=== PATIENT | female | born 1960 | race Caucasian/White ===

== ENCOUNTER → 2016-09-17 | Outpatient (CLI) | payer OTHER ==
[~2016-09-17] MED LIST: ACHYD1T PO; CALC-781 PO; CHOL100055 PO; COLC0.6T53 PO; CYCL100C3 PO; FLUO15CR8 TP; HYDR1TAB71 PO; METO25TA2 PO; METOPROLOL; METR500T PO; MULT-963 PO; ONDN4T PO; TRIA60LO6 TOP; ZLP10T PO; [UNRECOGNIZED DRUG - CODE] TP
--- OUTSIDE RECORDS SUMMARY | 2016-09-17 09:41 | XMS REPORT | Continuity of Care Document ---
Author Author [facility] Organization [facility] Address Unknown Phone Unavailable Care Team Providers Care Wax Pourer Name Role Phone Self, Referral PCP Unavailable Source Comments Some departments are not documenting in the electronic medical record. If you do not see the information that you expected, contact Release of Information in the Health Information Management department at [phone] for further assistance in locating additional records.[facility] Active Allergies and Adverse Reactions Not on File Current Medications Not on file Active Problems Problem Noted Date History of breast cancer 07/11/2013 Overview: 2007 Social History Tobacco Use Types Packs/Day Years Used Date Never Assessed Plan of Care Health Maintenance Due Date Last Done Comments Physical (Comprehensive) 1965 Exam Pertussis Vaccine 1969 Tetanus Vaccine 1975 Cervical Cancer Screening 1979 Breast Cancer Screening 1998 Colorectal Cancer 2008 Screening Influenza Vaccine 04/21/2016 Results from Last 3 Months Not on file
--- NOTE | 2016-09-17 10:56 | Diagnostic Imaging Report ---
PROCEDURE: MRI right joint lower extremity without contrast. INDICATION: Right knee pain TECHNIQUE: Multiplanar and multisequence noncontrast MR imaging was performed of the right knee. COMPARISON: None FINDINGS: Examination compromised with patient motion artifact despite the repeated imaging multiple sequences. The anterior and posterior cruciate ligaments are intact. There is myxoid degenerative change about the menisci. There is a more focal area of signal abnormality about the posterior horn of the medial meniscus extending to inferior surface compatible with nondisplaced meniscal tear. The joint spaces are fairly well maintained with the articular cartilage preserved. Collateral ligaments appearing to be intact. Quadriceps and patellar tendon intact. There is mild chondromalacia of the patella present. Small joint effusion. Mild amount of edema in the prepatellar aspect. No significant marrow signal abnormalities. Small subcortical cyst about the medial aspect of lateral tibial plateau. IMPRESSION: 1. Nondisplaced tear posterior horn medial meniscus superimposed on myxoid degenerative change. 2. Small joint effusion. Dictated by: Dictated on workstation # [id number]
== END ==
LOC: RAD 09:37
PROVIDERS: ATTEND Nurse Practitioner Family
DX: M25.561 Pain in right knee (principal)
CPT/HCPCS: 73721